=== PATIENT | male | born 1945 | race African-American/Black ===

== ENCOUNTER 2017-12-01 20:36 | Emergency (ER) | payer OTHER ==
[~2017-12-01] VITALS: Ht 185.4 cm; Wt 74.4 kg
[2017-12-01] MEDS ORDERED: LASIX 40 MG TAB40 M2 PO (21:09)
[2017-12-01] MEDS ORDERED: HYDRALAZINE 2525 MG PO (21:09)
[2017-12-01] MEDS ORDERED: ALDACTONE25 MG PO (21:09)
[2017-12-01] MEDS ORDERED: BENICAR40 MG PO (21:10)
[2017-12-01] MEDS ORDERED: NORVASC10 MG PO (21:10)
[2017-12-01] MEDS ORDERED: LOPRESSOR50 PO (21:10)
[2017-12-01] MEDS ORDERED: CLONIDINE HCL0.3 M3 PO (21:10)
[2017-12-01] MEDS ORDERED: JANUVIA100 MG PO (21:11)
[2017-12-01] MEDS ORDERED: PRAVACHOL40 MG PO (21:11)
[2017-12-01 21:16] LABS: HEMATOCRIT 32.1 % (42.0-52.0); HEMOGLOBIN 11.2 gm/dL (14.0-18.0); MCH 29.3 pg (26.0-34.0); MCHC 34.9 g/dL (28.0-37.0); RBC 3.83 mil/uL (4.50-6.00); RDW 14.2 % (10.5-14.5); WBC 5.4 thou/uL (4.0-11.0)
[2017-12-01] MEDS ORDERED: POTASSIUM20 PO ×2 (21:21)
[2017-12-01] MEDS ORDERED: ASPIR 8181 MG PO (21:21)
[2017-12-01] MEDS ORDERED: COMBIGAN EYE DR10 ML INTRAOCULR (21:22)
[2017-12-01] MEDS ORDERED: CENTRUM SILVER1 EAC7 PO (21:22)
[2017-12-01] MEDS ORDERED: METFORMIN HCL500 MG PO (21:23)
[2017-12-01] MEDS ORDERED: TRAVATAN Z5 ML INTRAOCULR (21:23)
[2017-12-01] MEDS ORDERED: FLOMAX0.4 MG PO (21:23)
[2017-12-01] MEDS ORDERED: AMARYL4 MG PO (21:23)
[2017-12-01 21:25] LABS: CALCIUM 9.2 mg/dL (8.5-10.1); CREATININE 1.5 mg/dL (0.7-1.3); POTASSIUM 4.4 mmol/L (3.5-5.1)
[2017-12-01 21:33] LABS: ALBUMIN 3.9 g/dL (3.4-5.0); TOTAL BILIRUBIN 0.7 mg/dL (<0.1-1.0); TOTAL PROTEIN 7.5 g/dL (6.4-8.2)
[2017-12-01 22:09] LABS: URINE BILIRUBIN NEGATIVE (Negative); URINE BLOOD NEGATIVE (Negative); URINE CLARITY CLEAR; URINE COLOR YELLOW; URINE GLUCOSE-RANDOM* NEGATIVE (Negative); URINE KETONES NEGATIVE (Negative); URINE LEUKOCYTES-REFLEX NEGATIVE (Negative); URINE NITRITE-REFLEX NEGATIVE (Negative); URINE PROTEIN (DIPSTICK) NEGATIVE (Negative); URINE SPECIFIC GRAVITY 1.015 (1.005-1.035); URINE UROBILINOGEN 0.2 E.U./dl (0.2-1.0)
[2017-12-01 22:34] VITALS: BP 139/77
== END 2017-12-01 22:37 | disposition home or self-care (01) ==
LOC: ER 20:36
PROVIDERS: Emergency Medicine
DX: E87.1 Hypo-osmolality and hyponatremia (principal); T50.2X5A Adverse effect of carbonic-anhydrase inhibitors, benzothiadiazides and other diuretics, initial encounter; I10 Essential (primary) hypertension; Z90.49 Acquired absence of other specified parts of digestive tract; Z90.89 Acquired absence of other organs; E11.9 Type 2 diabetes mellitus without complications; Y92.89 Other specified places as the place of occurrence of the external cause

== ENCOUNTER → 2019-12-19 | Outpatient (CLI) | payer OTHER ==
[~2019-12-19] MED LIST: ALDACTONE25 MG PO; AMARYL4 MG PO; ASPIR 8181 MG PO; BENICAR40 MG PO; CENTRUM SILVER1 EAC7 PO; CLONIDINE HCL0.3 M3 PO; COMBIGAN EYE DR10 ML INTRAOCULR; FLOMAX0.4 MG PO; HYDRALAZINE 2525 MG PO; JANUVIA100 MG PO; LASIX 40 MG TAB40 M2 PO; LOPRESSOR50 PO; METFORMIN HCL500 MG PO; NORVASC10 MG PO; POTASSIUM20 PO; PRAVACHOL40 MG PO; TRAVATAN Z5 ML INTRAOCULR
== END ==
LOC: SJCVCIMAG 10:41 → SJCVC 10:41
DX: R09.89 Other specified symptoms and signs involving the circulatory and respiratory systems (principal); E78.00 Pure hypercholesterolemia, unspecified; R14.0 Abdominal distension (gaseous); I10 Essential (primary) hypertension; E11.9 Type 2 diabetes mellitus without complications; Z86.79 Personal history of other diseases of the circulatory system; Z90.49 Acquired absence of other specified parts of digestive tract; Z87.891 Personal history of nicotine dependence; Z79.899 Other long term (current) drug therapy

== ENCOUNTER → 2020-09-02 | Outpatient (CLI) | payer OTHER | LOC: SJCVC 10:20 | PROVIDERS: ATTEND Internal Medicine Cardiovascular Disease | DX: R94.31 Abnormal electrocardiogram [ECG] [EKG] (principal); I45.10 Unspecified right bundle-branch block; E11.9 Type 2 diabetes mellitus without complications; E78.00 Pure hypercholesterolemia, unspecified; R09.89 Other specified symptoms and signs involving the circulatory and respiratory systems; E78.5 Hyperlipidemia, unspecified; I11.0 Hypertensive heart disease with heart failure; I50.9 Heart failure, unspecified; Z79.899 Other long term (current) drug therapy; Z87.891 Personal history of nicotine dependence; Z86.79 Personal history of other diseases of the circulatory system ==

== ENCOUNTER → 2021-11-16 | Outpatient (CLI) | payer OTHER | LOC: SJCVCIMAG 07:20 | PROVIDERS: ATTEND Internal Medicine Cardiovascular Disease | DX: I65.23 Occlusion and stenosis of bilateral carotid arteries (principal); E11.9 Type 2 diabetes mellitus without complications; I11.0 Hypertensive heart disease with heart failure; I50.9 Heart failure, unspecified; E78.5 Hyperlipidemia, unspecified; R09.89 Other specified symptoms and signs involving the circulatory and respiratory systems; Z79.82 Long term (current) use of aspirin; Z79.84 Long term (current) use of oral hypoglycemic drugs; Z79.899 Other long term (current) drug therapy ==

== ENCOUNTER → 2021-12-02 | Outpatient (CLI) | payer OTHER | LOC: SJCVCIMAG 09:48 | PROVIDERS: ATTEND Internal Medicine Cardiovascular Disease | DX: I34.0 Nonrheumatic mitral (valve) insufficiency (principal); I25.10 Atherosclerotic heart disease of native coronary artery without angina pectoris ==